=== PATIENT | male | born 1955 | race Caucasian/White ===

== ENCOUNTER 2019-01-23 20:45 | Inpatient (IN) | payer MEDICARE, OTHER ==
[~2019-01-23] VITALS: Ht 185.4 cm; Wt 146.0 kg
[2019-01-23 23:08] VITALS: BP 105/67
[2019-01-23] MEDS ORDERED: ATOR-2 PO (23:25)
[2019-01-23] MEDS ORDERED: HYDR-3245 PO (23:25)
[2019-01-23] MEDS ORDERED: GABA300C10 PO (23:25)
[2019-01-23] MEDS ORDERED: METH750T87 PO (23:25)
[2019-01-23] MEDS ORDERED: SULF1TAB23 PO (23:25)
[2019-01-23] MEDS ORDERED: FENO160T12 PO (23:25)
[2019-01-23] MEDS ORDERED: HYDR25TA6 PO (23:25)
[2019-01-24] MEDS ORDERED: HEPARIN 5,000 UNITS/ML, 1ML IV ONE (01:00)
[2019-01-24] MEDS ORDERED: HEPARIN 5,000 UNITS/ML, 1ML IV PRN (01:00)
[2019-01-24] MEDS ORDERED: HEPARIN 25,000 UNITS/500ML PMX 500 ML IV PRN (01:00)
[2019-01-24] MEDS ORDERED: GABAPENTIN 300 MG CAPSULE PO PRN (02:00)
[2019-01-24] MEDS ORDERED: NITROGLYCERIN 0.4 MG BOTTLE (25 TABS) SL PRN (02:00)
[2019-01-24] MEDS ORDERED: POLYETHYLENE GLYCOL 17 GM PACKET PO PRN (02:00)
[2019-01-24] MEDS ORDERED: ACETAMINOPHEN 325 MG TABLET PO PRN (02:00)
[2019-01-24] MEDS ORDERED: BISACODYL 10 MG SUPP PR PRN (02:00)
[2019-01-24 02:25] LABS: INTERNATIONAL NORMALIZED RATIO 1.02 (0.93-1.1); PROTHROMBIN TIME 10.7 Seconds (9.6-11.5)
[2019-01-24 02:26] LABS: MEAN CORPUSCULAR HEMOGLOBIN 32.6 pg (27.5-34.5); MEAN CORPUSCULAR HGB CONC 32.2 g/dL (33.2-36.2); MEAN CORPUSCULAR VOLUME 101.2 fL (81-97); MEAN PLATELET VOLUME 8.2 fL (7.4-10.4); PLATELET COUNT 216 x10^3/uL (130-400); RED BLOOD COUNT 3.36 x10^6/uL (4.38-5.82); RED CELL DISTRIBUTION WIDTH 13.1 % (9.4-14.8)
[2019-01-24 02:35] LABS: ALANINE AMINOTRANSFERASE 51 U/L (12-78); ANION GAP 11 mmol/L (5-15); CALCIUM 8.5 mg/dL (8.5-10.1); CHLORIDE 103 mmol/L (98-107); CREATININE 1.45 mg/dL (0.7-1.3)
[2019-01-24 02:39] LABS: ALKALINE PHOSPHATASE 53 U/L (45-117); BILIRUBIN,TOTAL 0.5 mg/dL (0.2-1.0); TOTAL PROTEIN 7.3 g/dL (6.4-8.2); TROPONIN I 0.615 ng/mL (0.000-0.045)
[2019-01-24 02:49] LABS: MD YES
[2019-01-24 02:56] LABS: ANISOCYTOSIS 1+; BAND#(MANUAL) 1.08 x10^3/uL; BANDS%(MANUAL) 13 % (0-7); LYMPH#(MANUAL) 1.08 x10^3/uL (1-3.4); LYMPHS% (MANUAL) 13 % (22-44); METAMYELOCYTES% (MANUAL) 6 % (0-1); MONOS#(MANUAL) 0.42 x10^3/uL (0.3-2.7); MONOS% (MANUAL) 5 % (2-9); NRBC % (MANUAL) 2 % (0-1); POLYCHROMASIA 1+; SEG#(MANUAL) 5.23 x10^3/uL (1.8-6.8); SEGS% (MANUAL) 63 % (42-75)
[2019-01-24 02:57] LABS: <PLATELET ESTIMATE> ADEQUATE; <PLT MORPHOLOGY> NORMAL PLT MORPH
[2019-01-24] MEDS ORDERED: LACTATED RINGERS 1,000 ML IV SCH (03:00)
[2019-01-24 03:08] LABS: HEMOGLOBIN A1C 9.2 % (4.2-6.3)
[2019-01-24 03:45] VITALS: BP 114/71
[2019-01-24 04:35] VITALS: BP 108/64
[2019-01-24] MEDS ORDERED: ASPIRIN 325 MG TABLET EC PO SCH (06:00)
[2019-01-24] MEDS: FENOFIBRATE 145 MG TABLET PO SCH (08:40)
[2019-01-24] MEDS: SENNA/DOCUSATE TABLET PO SCH (08:40)
[2019-01-24] MEDS: HYDROcodone/APAP 5/325 TABLET PO PRN ×3 (08:40→20:44)
[2019-01-24] MEDS: HYDROCHLOROTHIAZIDE 25 MG TABLET PO SCH (08:40)
[2019-01-24 09:12] LABS: TROPONIN I 0.683 ng/mL (0.000-0.045)
[2019-01-24 09:56] VITALS: BP 121/75
[2019-01-24] MEDS ORDERED: SODIUM CHLORIDE 0.9% 1,000 ML IV SCH (11:00)
[2019-01-24] MEDS ORDERED: VERAPAMIL 2.5 MG/ML, 2ML ONE (11:33)
[2019-01-24] MEDS ORDERED: NITROGLYCERIN 5 MG/ML, 10ML ONE (11:33)
[2019-01-24] MEDS ORDERED: FENTANYL PF 100 MCG/2ML ONE ×2 (11:33→14:52)
[2019-01-24] MEDS ORDERED: MIDAZOLAM 1 MG/ML, 5ML ONE ×2 (11:33→14:52)
[2019-01-24] MEDS ORDERED: TICAGRELOR 90 MG TABLET ONE ×2 (11:33→14:53)
[2019-01-24] MEDS ORDERED: BIVALIRUDIN 250 MG ONE ×3 (11:33→15:57)
[2019-01-24] MEDS ORDERED: HEPARIN 1,000 UNITS/ML, 10ML ONE ×2 (11:34→14:53)
[2019-01-24] MEDS ORDERED: LIDOCAINE-MPF 1%, 5ML ONE (11:34)
[2019-01-24 14:54] VITALS: BP 131/77
[2019-01-24] MEDS: SODIUM CHLORIDE 0.9% 1,000 ML IV SCH ×2 (17:55→23:21)
[2019-01-24 18:46] VITALS: BP 133/95
[2019-01-24] MEDS: ATORVASTATIN 80 MG TABLET PO SCH (20:44)
[2019-01-24] MEDS: TICAGRELOR 90 MG TABLET PO SCH (20:44)
[2019-01-24] MEDS: INSULIN LISPRO 100 UNITS/ML, PEN SQ-INSULIN SCH (20:45)
[2019-01-24 22:58] VITALS: BP 119/67
[2019-01-24] MEDS: METHOCARBAMOL 750 MG TABLET PO PRN (23:08)
[2019-01-25 02:33] VITALS: BP 121/76
[2019-01-25] MEDS: ASPIRIN 81 MG TABLET EC PO SCH (05:25)
[2019-01-25 06:34] LABS: % IRON SATURATION 24 % (20-55); ANION GAP 7 mmol/L (5-15); CALCIUM 8.7 mg/dL (8.5-10.1); CHLORIDE 106 mmol/L (98-107); CHOLESTEROL, TOTAL 115 mg/dL (140-239); CREATININE 1.35 mg/dL (0.7-1.3); IRON LEVEL 70 mcg/dL (65-175); TOTAL IRON BINDING CAPACITY 292 mcg/dL (250-450); TRIGLYCERIDES 352 mg/dL (50-200); VLDL CHOLESTEROL 70 mg/dL (0-25)
[2019-01-25 06:37] LABS: CHOL/HDL RATIO 5.2; HDL CHOL % 19 % (26-37); HDL CHOLESTEROL (DIRECT) 22 mg/dL (40-60); LDL CHOLESTEROL,CALCULATED 23 mg/dL (54-169); TRANSFERRIN 236 mg/dL (200-360)
[2019-01-25] MEDS: INSULIN LISPRO 100 UNITS/ML, PEN SQ-INSULIN SCH ×4 (07:00→20:44)
[2019-01-25] MEDS: FENOFIBRATE 145 MG TABLET PO SCH (09:55)
[2019-01-25] MEDS: TICAGRELOR 90 MG TABLET PO SCH ×2 (09:55→20:34)
[2019-01-25] MEDS: SENNA/DOCUSATE TABLET PO SCH (09:55)
[2019-01-25] MEDS: HYDROCHLOROTHIAZIDE 25 MG TABLET PO SCH (09:55)
[2019-01-25] MEDS: HYDROcodone/APAP 5/325 TABLET PO PRN ×2 (10:02→20:33)
[2019-01-25] MEDS: ONDANSETRON 2MG/ML, 2ML IVPush PRN (12:12)
[2019-01-25 13:30] LABS: TROPONIN I 0.699 ng/mL (0.000-0.045)
[2019-01-25 14:36] VITALS: BP 106/59
[2019-01-25] MEDS ORDERED: ENOXAPARIN 40 MG/0.4 ML SQ SCH (16:00)
[2019-01-25 18:16] LABS: TROPONIN I 0.553 ng/mL (0.000-0.045)
[2019-01-25 19:15] VITALS: BP 97/65
[2019-01-25] MEDS: ATORVASTATIN 80 MG TABLET PO SCH (20:34)
[2019-01-25] MEDS: METHOCARBAMOL 750 MG TABLET PO PRN (20:40)
[2019-01-26] MEDS: HYDROcodone/APAP 5/325 TABLET PO PRN ×2 (00:40→05:38)
[2019-01-26 01:00] VITALS: BP 106/67
[2019-01-26] MEDS: ONDANSETRON 2MG/ML, 2ML IVPush PRN (01:29)
[2019-01-26] MEDS: ASPIRIN 81 MG TABLET EC PO SCH (05:33)
[2019-01-26] MEDS: METHOCARBAMOL 750 MG TABLET PO PRN (05:38)
[2019-01-26 06:16] LABS: MICROSCOPIC AUTO
[2019-01-26 07:25] VITALS: BP_SYST 113; BP_DIAS 7; BP_DIAS 74
[2019-01-26] MEDS: TICAGRELOR 90 MG TABLET PO SCH (07:42)
[2019-01-26] MEDS: SENNA/DOCUSATE TABLET PO SCH (07:42)
[2019-01-26] MEDS: FENOFIBRATE 145 MG TABLET PO SCH (07:42)
[2019-01-26] MEDS: INSULIN LISPRO 100 UNITS/ML, PEN SQ-INSULIN SCH ×2 (07:43→11:00)
[2019-01-26] MEDS ORDERED: CALCIUM CARBONATE 500 MG TAB.CHEW PO PRN (08:00)
[2019-01-26] MEDS ORDERED: ASPI81TA45 PO (09:52)
[2019-01-26] MEDS ORDERED: GLIP5TAB10 PO (09:52)
[2019-01-26] MEDS ORDERED: METF500T17 PO (09:52)
[2019-01-26] MEDS ORDERED: TICA90TA PO (09:52)
== END 2019-01-26 13:30 | disposition home or self-care (01) | DRG 246 ==
LOC: 5SO 21:30 → DCLOUNGE 01-26 13:03
PROVIDERS: ADMIT Internal Medicine Cardiovascular Disease; ATTEND Internal Medicine Cardiovascular Disease
PROC: 027034Z Dilation of Coronary Artery, One Artery with Drug-eluting Intraluminal Device, Percutaneous Approach (ICD-10-PCS; principal; 2019-01-24)
PROC: 4A023N7 Measurement of Cardiac Sampling and Pressure, Left Heart, Percutaneous Approach (ICD-10-PCS; 2019-01-24)
PROC: B2111ZZ Fluoroscopy of Multiple Coronary Arteries using Low Osmolar Contrast (ICD-10-PCS; 2019-01-24)
PROC: B2151ZZ Fluoroscopy of Left Heart using Low Osmolar Contrast (ICD-10-PCS; 2019-01-24)
DX: I21.19 ST elevation (STEMI) myocardial infarction involving other coronary artery of inferior wall (principal); J96.01 Acute respiratory failure with hypoxia; N17.9 Acute kidney failure, unspecified; Z68.41 Body mass index [BMI] 40.0-44.9, adult; E11.65 Type 2 diabetes mellitus with hyperglycemia; E11.22 Type 2 diabetes mellitus with diabetic chronic kidney disease; N18.3 Chronic kidney disease, stage 3 (moderate); I12.9 Hypertensive chronic kidney disease with stage 1 through stage 4 chronic kidney disease, or unspecified chronic kidney disease; E66.01 Morbid (severe) obesity due to excess calories; G89.29 Other chronic pain; M54.5 Low back pain; E78.1 Pure hyperglyceridemia; D50.9 Iron deficiency anemia, unspecified; E11.21 Type 2 diabetes mellitus with diabetic nephropathy; D53.9 Nutritional anemia, unspecified; I25.10 Atherosclerotic heart disease of native coronary artery without angina pectoris; I77.819 Aortic ectasia, unspecified site; K59.00 Constipation, unspecified; Z79.84 Long term (current) use of oral hypoglycemic drugs; Z87.891 Personal history of nicotine dependence
CPT/HCPCS: 36415; 80048; 80053; 80061; 81001; 82728; 82962; 83036; 83540; 83550; 83880; 84466; 84484; 85014; 85018; 85025; 85520; 85610; 93005; 93458; 93571; 99156; 99157; C1769; C1894; C8929; C9600; G0378; J0583; J1644; J1650; J2250; J2405; J3010; Q9957; C1725; C1874; C1887; J1815; J7030; J7120; Q9967